=== PATIENT | male | born 1975 ===

== ENCOUNTER 2021-07-22 15:44 | Emergency (ER) | payer SELFPAY ==
[~2021-07-22] VITALS: Ht 175.3 cm; Wt 81.7 kg
== END 2021-07-22 18:22 | disposition left against medical advice (07) ==
LOC: ER 15:44
DX: M25.561 Pain in right knee (principal); Z53.21 Procedure and treatment not carried out due to patient leaving prior to being seen by health care provider
CPT/HCPCS: 73562-RT; 99281-25

== ENCOUNTER 2022-06-18 20:50 | Emergency (ER) | payer OTHER ==
[~2022-06-18] VITALS: Ht 175.3 cm; Wt 81.7 kg
[2022-06-18 21:28] LABS: BASOPHILS ABSOLUTE AUTO 0.09 K/mm3 (0.00-0.23); BASOPHILS PERCENT AUTO 0 % (0-2); EOSINOPHILS ABSOLUTE AUTO 0.02 K/mm3 (0.00-0.68); EOSINOPHILS PERCENT AUTO 0 % (0-6); Hematocrit 31.3 % (37.0-53.0); IMMATURE GRAN ABSOLUTE AUTO 0.28 K/mm3 (0.00-0.10); IMMATURE GRAN PERCENT AUTO 1 % (0-1); LYMPHOCYTES ABSOLUTE AUTO 1.96 K/mm3 (0.84-5.20); LYMPHOCYTES PERCENT AUTO 8 % (21-46); MONOCYTES ABSOLUTE AUTO 2.54 K/mm3 (0.16-1.47); MONOCYTES PERCENT AUTO 11 % (4-13); Mean Corpuscular HGB 30.2 pg (26.0-34.0); Mean Corpuscular HGB Conc 35.1 g/dL (31.5-36.5); Mean Corpuscular Volume 86 fL (80-100); Mean Platelet Volume 10.6 fL (9.1-12.4); NEUTROPHILS ABSOLUTE AUTO 19.14 K/mm3 (1.96-9.15); NEUTROPHILS PERCENT AUTO 80 % (41-73); Platelet Count 420 K/mm3 (150-400); RDW Coefficient Variation 13.7 % (11.7-14.2); RDW Standard Deviation 43.1 fL (35.1-46.3); Red Blood Cell Count 3.64 M/mm3 (4.30-5.90); White Blood Cell Count 24.03 K/mm3 (4.00-11.30)
[2022-06-18 21:46] LABS: Albumin/Globulin Ratio 0.4 (0.8-1.8); Bilirubin, Total 0.8 mg/dL (0.1-1.0); Bun/Creatinine Ratio 18.4 (12.0-20.0); Calcium, Blood 8.5 mg/dL (8.5-10.1); Creatinine, Blood 0.71 mg/dL (0.60-1.20); Globulin, Blood 4.7 g/dL (2.2-4.0); Potassium, Blood 3.7 mmol/L (3.5-5.5); Total Protein, Blood 6.7 g/dL (6.4-8.2)
[2022-06-18 21:59] LABS: Influenza A, PCR NEGATIVE (NEGATIVE); Influenza B, PCR NEGATIVE (NEGATIVE); Resp Syncytial Virus, PCR NEGATIVE (NEGATIVE); SARS-Cov-2 (COVID-19) PCR, MMC NEGATIVE (NEGATIVE)
== END 2022-06-18 23:37 | disposition left against medical advice (07) ==
LOC: ER 20:50
PROVIDERS: Emergency Medicine
DX: Z53.21 Procedure and treatment not carried out due to patient leaving prior to being seen by health care provider (principal)
CPT/HCPCS: 0241U; 36415; 71046; 80053; 85025; 93005; 93010

== ENCOUNTER 2023-04-12 17:51 | Emergency (ER) | payer OTHER ==
[~2023-04-12] VITALS: Ht 172.7 cm; Wt 77.1 kg
[2023-04-12 17:56] VITALS: BP 114/76
[2023-04-12] MEDS ORDERED: IBUP600 PO (20:03)
[2023-04-12] MEDS ORDERED: CEPH500 PO (20:03)
== END 2023-04-12 20:20 | disposition home or self-care (01) ==
LOC: ER 17:51
DX: S61.213A Laceration without foreign body of left middle finger without damage to nail, initial encounter (principal); Z23 Encounter for immunization; Z59.00 Homelessness unspecified; W26.8XXA Contact with other sharp object(s), not elsewhere classified, initial encounter
CPT/HCPCS: 12002; 29130; 73130; 90471; 90702; 90715; 99284-25; A9270